=== PATIENT | female | born 1990 | race Caucasian/White ===

== ENCOUNTER 2020-01-21 07:37 | Emergency (ER) | payer OTHER ==
[~2020-01-21] VITALS: Ht 170.2 cm; Wt 93.2 kg
[~2020-01-21 07:37] MED LIST: AMBIEN10 MG PO; ATIVAN1 MG PO; BIRTHCONTROL; CELEXA20 MG PO; LISINOPRIL10 MG PO
[2020-01-21 07:38] VITALS: Ht 170.2 cm; Wt 93.2 kg
[2020-01-21] MEDS ORDERED: ADIPEX-P37.5 M1 PO (07:40)
[2020-01-21] MEDS ORDERED: PAXIL30 MG PO (07:40)
[2020-01-21] MEDS ORDERED: SINEQUAN25 MG PO (07:40)
[2020-01-21] MEDS ORDERED: VALTREX1000 MG PO (07:40)
[2020-01-21 08:24] LABS: HCG URINE NEGATIVE (NEGATIVE)
[2020-01-21] MEDS ORDERED: CYCLOBENZAPRINE10 MG PO (08:51)
[2020-01-21] MEDS ORDERED: TYLENOL #4 W/CO1 TAB PO (08:51)
[2020-01-21 09:13] VITALS: BP 133/100
== END 2020-01-21 09:14 | disposition home or self-care (01) ==
LOC: D.ER 07:37
PROVIDERS: Family Medicine
DX: M54.2 Cervicalgia (principal); V89.2XXA Person injured in unspecified motor-vehicle accident, traffic, initial encounter; Y93.9 Activity, unspecified; Y92.9 Unspecified place or not applicable; R51 Headache; I10 Essential (primary) hypertension

== ENCOUNTER 2020-10-03 14:35 | Inpatient (IN) | payer BC ==
[~2020-10-03] VITALS: Ht 170.2 cm; Wt 109.1 kg
[~2020-10-03 14:35] MED LIST changes: +ADIPEX-P37.5 M1 PO; +CYCLOBENZAPRINE10 MG PO; +PAXIL30 MG PO; +SINEQUAN25 MG PO; +TYLENOL #4 W/CO1 TAB PO; +VALTREX1000 MG PO
[2020-10-03 15:39] LABS: BASOPHILS 0.1 % (0-2); EOSINOPHILS 0.4 % (0-7); HEMATOCRIT 40.1 % (36.0-48.0); HEMOGLOBIN 13.1 g/dL (12-16); IMMATURE GRANULOCYTES 1.2 % (0-5); LYMPHOCYTE ABS# 1.48 10x3/uL (1.18-3.74); LYMPHOCYTES 7.9 % (15-50); MCH 29.9 pg (26.0-34.0); MCHC 32.7 g/dL (31.0-37.0); MCV 91.6 fL (80.0-100.0); MEAN PLATELET VOLUME 8.5 fL (7.4-10.4); NEUTROPHIL ABS# 15.11 10x3/uL (1.56-6.13); NEUTROPHILS 80.4 % (40-80); PLATELET COUNT 361 10x3/uL (130-400); RBC 4.38 10x6/uL (4.00-5.40); RDW 14.9 % (11.5-14.5); WBC 18.8 10x3/uL (4.8-10.8)
[2020-10-03 15:53] LABS: APTT 23.9 SECONDS (22.8-39.4); INR 1.04 (0.85-1.17); PROTIME 12.6 SECONDS (11.6-15.0)
[2020-10-03 15:57] LABS: CALC OSMOLALITY 274 mosm/kg (275-300); CALCIUM 8.1 mg/dL (8.5-10.1); CARBON DIOXIDE 23.6 mmol/L (21.0-32.0); CHLORIDE - SERUM 101 mmol/L (98-107); CREATININE - SERUM 0.9 mg/dL (0.6-1.3); GLUCOSE 106 mg/dL (74-106); POTASSIUM - SERUM 3.9 mmol/L (3.5-5.1); SODIUM 136 mmol/L (136-145); UREA NITROGEN 21 mg/dL (7-18); eGFR NON AFRICAN AMERICAN 77 mL/min (90-120)
[2020-10-03 16:00] LABS: HCG SERUM NEGATIVE (NEGATIVE)
[2020-10-03 16:14] LABS: ALKALINE PHOSPHATASE 80 U/L (30-120); ALT (SGPT) 25 U/L (10-68); BILIRUBIN - TOTAL 0.46 mg/dL (0.2-1.3); CKMB 0.7 U/L (0.0-3.6); CREATINE KINASE 35 UL (21-215); PRO BNP 82 pg/mL (0-125); PROTEIN - SERUM 6.9 g/dL (6.4-8.2); TROPONIN-I < 0.017 ng/mL (0.000-0.060)
[2020-10-03 16:30] VITALS: BP 165/109
[2020-10-03 16:48] LABS: D-DIMER-QUANTITATIVE 1.51 ug/mLFEU (0.20-0.54)
[2020-10-03 17:17] VITALS: BP 142/104
--- NOTE | 2020-10-03 19:30 | NUR ---
ASSUMED CARE OF PATIENT, MD CONSULTING TO SEE IF SHE WILL BE ADMITTED, PATIENT HAS NO COMPLAINTS AT THIS TIME. CALL LIGHT WITHIN REACH.
[2020-10-03 20:00] VITALS: BP 137/95
--- NOTE | 2020-10-03 20:50 | NUR ---
TO BE ADMITTED,
--- NOTE | 2020-10-03 21:30 | NUR ---
ADMIT TO ROOM 2137 FROM ER. ALERT/ORIENTED/AMBULATORY. PT HAS BEEN HOME WITH CANDY SINCE 09/15/20 AND BEGAN TO DEVELOP INCREASING SHORTNESS OF BREATH. ADMISSION ASSESSMENT AND HISTORY COMPLETED. HOME MEDS REVIEWED. CALLED AND SPOKE WITH HUMBERTO PUENTE THAT PATIENT WAS ON UNIT, MEDS REVIEWED AND PT ASKING FOR HER AMBIEN AND ATIVAN TO HELP WITH HER ANXIETY AND SLEEP. ORDERS RECIEVED.
[2020-10-03] MEDS ORDERED: AMBIEN5 MG PO (21:43)
[2020-10-03 21:45] VITALS: BP 152/112
--- NOTE | 2020-10-03 23:55 | NUR ---
ADMINISTERED ATIVAN 2MG ORAL AND AMBIEN 10MG ORAL FOR ANXIETY/PROMOTE SLEEP. PT ON TELEMETRY, SHOWING ST 101-120. HAD RESPIRATORY ASSESS PATIENT FOR BASELINE STATUS ON HER BREATHING IN CASE SHE DEVELOPS PROBLEMS. SPOKE WITH PATIENT ABOUT BEDREST WITH BATH ROOM PRIVILEGES.
[2020-10-04 00:32] VITALS: BP 152/111; Ht 170.2 cm; Wt 109.1 kg
--- NOTE | 2020-10-04 02:02 | NUR ---
IV ABT UP AND INFUSING. PT AWAKE, CALMER, MORE RELAXED. LESS SOB.
[2020-10-04 05:17] VITALS: BP 157/104
--- NOTE | 2020-10-04 06:28 | NUR ---
CONSULT PER DR LALA. SEEING PATIENT NOW. NEW ORDERS ADDED TO PLAN OF CARE.
[2020-10-04 07:43] VITALS: BP 140/99
[2020-10-04 08:12] LABS: BASOPHILS 0.1 % (0-2); EOSINOPHILS 1.8 % (0-7); HEMOGLOBIN 12.7 g/dL (12-16); IMMATURE GRANULOCYTES 1.4 % (0-5); LYMPHOCYTE ABS# 3.59 10x3/uL (1.18-3.74); LYMPHOCYTES 24.6 % (15-50); MCH 29.8 pg (26.0-34.0); MCHC 32.6 g/dL (31.0-37.0); MCV 91.5 fL (80.0-100.0); MEAN PLATELET VOLUME 8.4 fL (7.4-10.4); MONOCYTES 8.4 % (2-11); NEUTROPHILS 63.7 % (40-80); PLATELET COUNT 333 10x3/uL (130-400); RBC 4.26 10x6/uL (4.00-5.40); RDW 15.2 % (11.5-14.5); WBC 14.6 10x3/uL (4.8-10.8)
[2020-10-04 08:43] LABS: ALBUMIN 3.1 g/dL (3.4-5.0); ALKALINE PHOSPHATASE 82 U/L (30-120); ALT (SGPT) 27 U/L (10-68); BILIRUBIN - TOTAL 0.33 mg/dL (0.2-1.3); CALC OSMOLALITY 270 mosm/kg (275-300); CALCIUM 7.6 mg/dL (8.5-10.1); CARBON DIOXIDE 26.9 mmol/L (21.0-32.0); CHLORIDE - SERUM 102 mmol/L (98-107); CREATININE - SERUM 0.7 mg/dL (0.6-1.3); GLUCOSE 81 mg/dL (74-106); MAGNESIUM - SERUM 2.6 mg/dL (1.8-2.4); POTASSIUM - SERUM 3.8 mmol/L (3.5-5.1); PROTEIN - SERUM 6.9 g/dL (6.4-8.2); SODIUM 135 mmol/L (136-145); UREA NITROGEN 19 mg/dL (7-18); eGFR NON AFRICAN AMERICAN > 90 mL/min (90-120)
--- NOTE | 2020-10-04 10:36 | NUR ---
NOTIFIED DR. WAHL THAT PT IS VERY ANXIOUS AND WANTS TO KNOW IF SHE CAN HAVE SOMETHING FOR ANXIETY. ORDER FOR 1MG OF ATIVAN PO Q12PRN.
--- NOTE | 2020-10-04 10:50 | NUR ---
PT VERY ANXIOUS HR IN 120S, GAVE 1MG OF ATIVAN AT THIS TIME. PT DENIES ANY OTHER NEEDS, CALL LIGHT IN REACH.
[2020-10-04 11:05] VITALS: BP 138/83
--- NOTE | 2020-10-04 13:29 | NUR ---
PT C/O CHEST PAIN, ST 126 ON TELEMETRY. PT REFUSED TO HAVE EKG DONE, GAVE 4MG OF MORPHINE GIVEN FOR PAIN LEVEL OF 5/10. PT VERY ANXIOUS, ANXIETY MEDICATION ALREADY GIVEN EARLIER. PT DENIES ANY OTHER NEEDS AT THIS TIME. CALL LIGHT IN REACH.
[2020-10-04 14:58] VITALS: BP 157/101
--- NOTE | 2020-10-04 17:36 | NUR ---
PT C/O RT FA IV HURTING, FLUSHED IV AND PT STATED THAT IT DID NOT BURN BUT IT JUST DID NOT FEEL RIGHT, D/C IV WITH CATHETER TIP INTACT. PT WANTS TO GET IN THE SHOWER, PROVIDED PT WITH SUPPLIES NEEDED FOR SHOWER, PT STATED THAT SHE WOULD CHANGE HER OWN LINEN.
--- NOTE | 2020-10-04 18:20 | NUR ---
NEW 20G IV STARTED TO LT FA X1 STICK, PT TOLERATED PROCEDURE WELL.
[2020-10-04 20:30] VITALS: BP 153/99
[2020-10-05 00:30] VITALS: BP 123/85
--- NOTE | 2020-10-05 02:35 | NUR ---
PT VERY ANXIOUS THIS SHIFT. PATIENT REQUESTED PRN ATIVAN AND FLEXERIL. PRN MEDICATIONS GIVEN. PT HR INCREASED TO 150 WHEN AMBULATING TO BATHROOM. 110 HR AT REST. PT STAYED AWAKE UNTIL 0230 THIS MORNING. PT OBSERVED SNORING AND RESTING COMFORTABLY.
[2020-10-05 04:30] VITALS: BP 155/98
[2020-10-05 05:57] LABS: BASOPHILS 0.2 % (0-2); EOSINOPHILS 1.8 % (0-7); HEMATOCRIT 35.4 % (36.0-48.0); HEMOGLOBIN 11.4 g/dL (12-16); IMMATURE GRANULOCYTES 1.5 % (0-5); LYMPHOCYTE ABS# 3.11 10x3/uL (1.18-3.74); MCH 29.8 pg (26.0-34.0); MCHC 32.2 g/dL (31.0-37.0); MCV 92.4 fL (80.0-100.0); MEAN PLATELET VOLUME 8.5 fL (7.4-10.4); MONOCYTES 9.6 % (2-11); NEUTROPHIL ABS# 7.72 10x3/uL (1.56-6.13); NEUTROPHILS 61.9 % (40-80); PLATELET COUNT 302 10x3/uL (130-400); RBC 3.83 10x6/uL (4.00-5.40); RDW 15.4 % (11.5-14.5); WBC 12.5 10x3/uL (4.8-10.8)
[2020-10-05 06:36] LABS: ALBUMIN 2.6 g/dL (3.4-5.0); ALKALINE PHOSPHATASE 76 U/L (30-120); BILIRUBIN - TOTAL 0.38 mg/dL (0.2-1.3); CALC OSMOLALITY 271 mosm/kg (275-300); CALCIUM 7.8 mg/dL (8.5-10.1); CARBON DIOXIDE 26.3 mmol/L (21.0-32.0); CHLORIDE - SERUM 103 mmol/L (98-107); CREATININE - SERUM 0.7 mg/dL (0.6-1.3); GLUCOSE 81 mg/dL (74-106); MAGNESIUM - SERUM 2.3 mg/dL (1.8-2.4); SODIUM 135 mmol/L (136-145); UREA NITROGEN 20 mg/dL (7-18); eGFR NON AFRICAN AMERICAN > 90 mL/min (90-120)
[2020-10-05 06:38] LABS: ALT (SGPT) 19 U/L (10-68); POTASSIUM - SERUM 4.4 mmol/L (3.5-5.1)
[2020-10-05 08:00] VITALS: BP 156/100
--- NOTE | 2020-10-05 09:36 | NUR ---
AM MEDS GIVEN AT THIS TIME. ALSO GAVE 1MG OF ATIVAN AND FLEXERIL PER PT REQUEST. EKG DONE AND PLACED ON CHART. PT A/O X4, RESP EVEN AND NONLAOBORED ON 2L NC. LT FA IV SL, ST 122 ON TELEMETRY. PT DENIES ANY OTHER NEEDS AT THIS TIME. CALL LIGHT IN REACH, WILL CONTINUE PLAN OF CARE.
[2020-10-05 12:00] VITALS: BP 129/83
--- NOTE | 2020-10-05 15:33 | NUR ---
NOTIFIED JASMYN RODRIGUEZ, THAT PT IS ASKING IF SHE CAN HAVE SOMETHING EXTRA FOR ANXIETY, PER JASMYN D/C 1MG OF ATIVAN Q12HRS PRN AND START XANAX [id number] PRN.
[2020-10-05 16:00] VITALS: BP 136/80
--- NOTE | 2020-10-05 16:33 | NUR ---
AFTER XANAX WAS SCANNED AND GIVEN TO PT, COMPUTER KICKED THIS NURSE OUT OF [facility] AND XANAX WAS NEVER SUBMITTED. TRIED TO SCAN MEDICATIONS AGAIN AND IT KEEPS SAYING THAT IT IS ALREADY BEING DOCUMENTED BY THIS NURSE ON THE COMPUTER. TOTAL XANAX GIVEN WAS 0.5MG PER ORDER.
--- NOTE | 2020-10-05 17:55 | NUR ---
4MG OF MORPHINE GIVEN FOR PAIN LEVEL OF 6/10. PT DENIES ANY OTHER NEEDS AT THIS TIME. CALL LIGHT IN REACH.
--- NOTE | 2020-10-05 19:10 | NUR ---
pt awake, alert sittingup in bed, denies needs at this time. Does want a nail file if possible, advised pt will check on this. will cotninue to monitor
[2020-10-06] VITALS (7 sets, daily range): BP systolic 130–154; BP diastolic 75–104
[2020-10-06 09:03] LABS: BASOPHILS 0.2 % (0-2); EOSINOPHILS 1.8 % (0-7); HEMATOCRIT 38.3 % (36.0-48.0); HEMOGLOBIN 12.1 g/dL (12-16); LYMPHOCYTES 23.3 % (15-50); MCH 29.7 pg (26.0-34.0); MCHC 31.6 g/dL (31.0-37.0); MCV 93.9 fL (80.0-100.0); MEAN PLATELET VOLUME 8.5 fL (7.4-10.4); MONOCYTES 8.2 % (2-11); NEUTROPHIL ABS# 8.56 10x3/uL (1.56-6.13); NEUTROPHILS 64.5 % (40-80); PLATELET COUNT 322 10x3/uL (130-400); RBC 4.08 10x6/uL (4.00-5.40); RDW 15.4 % (11.5-14.5); WBC 13.3 10x3/uL (4.8-10.8)
[2020-10-06 09:18] LABS: ALBUMIN 2.9 g/dL (3.4-5.0); ALKALINE PHOSPHATASE 93 U/L (30-120); ALT (SGPT) 22 U/L (10-68); BILIRUBIN - TOTAL 0.42 mg/dL (0.2-1.3); CALC OSMOLALITY 272 mosm/kg (275-300); CALCIUM 7.8 mg/dL (8.5-10.1); CARBON DIOXIDE 29.6 mmol/L (21.0-32.0); CHLORIDE - SERUM 102 mmol/L (98-107); CREATININE - SERUM 0.6 mg/dL (0.6-1.3); GLUCOSE 78 mg/dL (74-106); MAGNESIUM - SERUM 2.2 mg/dL (1.8-2.4); POTASSIUM - SERUM 3.8 mmol/L (3.5-5.1); PROTEIN - SERUM 6.4 g/dL (6.4-8.2); SODIUM 136 mmol/L (136-145); UREA NITROGEN 19 mg/dL (7-18); eGFR NON AFRICAN AMERICAN > 90 mL/min (90-120)
--- NOTE | 2020-10-06 12:20 | NUR ---
GAVE 4MG OF MORPHINE FOR PAIN LEVEL OF 5/10. PT DENIES ANY OTHER NEEDS AT THIS TIME. CALL LIGHT IN REACH.
--- NOTE | 2020-10-06 12:20 | NUR ---
4MG OF MORPHINE GIVEN AT THIS TIME. FOR PAIN LEVEL OF 5/10. PT DENIES ANY OTHER NEEDS AT THIS TIME. CALL LIGHT IN REACH.
--- NOTE | 2020-10-06 23:30 | NUR ---
PT HAS HAD SCHEDULED MEDS AND PRNS, REPORTS STILL WORRIED THAT SHE CAN NOT SLEEP. BP NOTED ELEVATED BUT IMPROVED UPON RECHECK.
[2020-10-07 07:14] LABS: BASOPHILS 0.1 % (0-2); EOSINOPHILS 1.5 % (0-7); HEMATOCRIT 39.7 % (36.0-48.0); HEMOGLOBIN 12.5 g/dL (12-16); IMMATURE GRANULOCYTES 3.1 % (0-5); LYMPHOCYTE ABS# 3.15 10x3/uL (1.18-3.74); LYMPHOCYTES 23.5 % (15-50); MCH 29.8 pg (26.0-34.0); MCHC 31.5 g/dL (31.0-37.0); MCV 94.5 fL (80.0-100.0); MEAN PLATELET VOLUME 8.7 fL (7.4-10.4); NEUTROPHIL ABS# 8.57 10x3/uL (1.56-6.13); NEUTROPHILS 63.8 % (40-80); PLATELET COUNT 383 10x3/uL (130-400); RDW 15.5 % (11.5-14.5); WBC 13.4 10x3/uL (4.8-10.8)
[2020-10-07 07:18] LABS: ALKALINE PHOSPHATASE 89 U/L (30-120); ALT (SGPT) 24 U/L (10-68); BILIRUBIN - TOTAL 0.34 mg/dL (0.2-1.3); CALC OSMOLALITY 273 mosm/kg (275-300); CALCIUM 8.2 mg/dL (8.5-10.1); CARBON DIOXIDE 29.7 mmol/L (21.0-32.0); CHLORIDE - SERUM 101 mmol/L (98-107); CREATININE - SERUM 0.7 mg/dL (0.6-1.3); GLUCOSE 82 mg/dL (74-106); MAGNESIUM - SERUM 2.3 mg/dL (1.8-2.4); POTASSIUM - SERUM 3.8 mmol/L (3.5-5.1); PROTEIN - SERUM 6.8 g/dL (6.4-8.2); SODIUM 136 mmol/L (136-145); UREA NITROGEN 20 mg/dL (7-18); eGFR NON AFRICAN AMERICAN > 90 mL/min (90-120)
[2020-10-07 08:10] VITALS: BP 103/67
[2020-10-07 11:13] VITALS: BP 113/68
[2020-10-07 17:00] VITALS: BP 127/61
[2020-10-07 20:00] VITALS: BP 129/84
--- NOTE | 2020-10-07 23:33 | NUR ---
HR 118 pt request metoprolol for HR and to see if this will help her to calm down and sleep. MEtorpolol adm per PRN parameters.
[2020-10-08 04:00] VITALS: BP 128/81
[2020-10-08 05:30] LABS: BASOPHILS 0.1 % (0-2); EOSINOPHILS 1.3 % (0-7); HEMATOCRIT 40.8 % (36.0-48.0); HEMOGLOBIN 12.9 g/dL (12-16); IMMATURE GRANULOCYTES 3.6 % (0-5); LYMPHOCYTE ABS# 3.84 10x3/uL (1.18-3.74); LYMPHOCYTES 24.9 % (15-50); MCH 30.4 pg (26.0-34.0); MCHC 31.6 g/dL (31.0-37.0); MCV 96.2 fL (80.0-100.0); MEAN PLATELET VOLUME 8.4 fL (7.4-10.4); NEUTROPHIL ABS# 9.73 10x3/uL (1.56-6.13); NEUTROPHILS 63.1 % (40-80); PLATELET COUNT 346 10x3/uL (130-400); RBC 4.24 10x6/uL (4.00-5.40); RDW 15.7 % (11.5-14.5); WBC 15.4 10x3/uL (4.8-10.8)
[2020-10-08 05:50] LABS: ALBUMIN 3.2 g/dL (3.4-5.0); ALKALINE PHOSPHATASE 143 U/L (30-120); ALT (SGPT) 29 U/L (10-68); BILIRUBIN - TOTAL 0.31 mg/dL (0.2-1.3); CALCIUM 7.9 mg/dL (8.5-10.1); CARBON DIOXIDE 27.1 mmol/L (21.0-32.0); CHLORIDE - SERUM 101 mmol/L (98-107); MAGNESIUM - SERUM 2.2 mg/dL (1.8-2.4); POTASSIUM - SERUM 3.3 mmol/L (3.5-5.1); PROTEIN - SERUM 6.9 g/dL (6.4-8.2); SODIUM 136 mmol/L (136-145); UREA NITROGEN 20 mg/dL (7-18); eGFR NON AFRICAN AMERICAN 77 mL/min (90-120)
[2020-10-08 06:00] LABS: CALC OSMOLALITY 276 mosm/kg (275-300); CREATININE - SERUM 0.9 mg/dL (0.6-1.3); GLUCOSE 143 mg/dL (74-106)
[2020-10-08 08:19] VITALS: BP 139/84
[2020-10-08] MEDS ORDERED: NYSTATIN100000 UN4 PO (08:53)
[2020-10-08] MEDS ORDERED: VENTOLIN HFA [SP8 GM INH (08:54)
[2020-10-08] MEDS ORDERED: XOPENEX HFA15 GM INH (08:54)
[2020-10-08] MEDS ORDERED: ELIQUIS5 MG PO (08:55)
[2020-10-08] MEDS ORDERED: ZINC-220220 MG PO (08:56)
[2020-10-08] MEDS ORDERED: TESSALON PERLE100 MG PO (08:56)
[2020-10-08] MEDS ORDERED: MUCINEX600 MG PO (08:56)
[2020-10-08] MEDS ORDERED: DULERA 200 MCG8.8 GM INH (08:56)
[2020-10-08] MEDS ORDERED: PROTONIX40 MG PO (08:57)
[2020-10-08] MEDS ORDERED: FLORAJEN3 CAPS460 MG PO (08:57)
[2020-10-08] MEDS ORDERED: ASCORBIC ACID500 MG PO (08:57)
[2020-10-08] MEDS ORDERED: MELATONIN 3 MG1 TAB PO (08:57)
[2020-10-08] MEDS ORDERED: VITAMIN D325 MC1 PO (08:57)
[2020-10-08] MEDS ORDERED: DECADRON4 MG PO (08:58)
[2020-10-08] MEDS ORDERED: OMNICEF300 MG PO (08:59)
[2020-10-08] MEDS ORDERED: AZITHROMYCIN500 MG PO (08:59)
[2020-10-08] MEDS ORDERED: XANAX1 MG PO (09:00)
--- NOTE | 2020-10-08 10:06 | NUR ---
WRITTEN SCRIPT FOR XANAX IS COPIED AND ORIGINAL IS GIVEN TO PATIENT.
--- NOTE | 2020-10-08 22:42 | MORECARE ---
CASE MANAGEMENT DISCHARGE SUMMARY PATIENT: GENOVEVA CHUN UNIT: [id number] ADM DATE: 10/03/20 AGE: 30 : 86 SEX: F ROOM/BED: D.5927 AUTHOR: MANI PAEZ PHYSICIAN: REFERRING PHYSICIAN: ELISEO GARZA MD DATE OF SERVICE: 10/08/20 Discharge Plan Patient Name: GENOVEVA CHUN Facility: [facility]:[place] : 1990 Planned Disposition: Home Anticipated Discharge Date: Discharge Date: 10/08/2020 Expected LOS: Initial Reviewer: [email or web address] Initial Review Date: 10/03/2020 Generated: 10/08/20 11:41 pm Comments DCP- Discharge Planning Updated by [email or web address]: Cierra Dong on 10/08/20 9:[address] Patient Name: GENOVEVA CHUN Admission Status: ER Accout number: [id number] Admission Date: 10-03-2020 : 1990 Admission Diagnosis:ACUTE RESPIRATORY FAILURE WITH HYPOXIA Attending: ELISEO GARZA Current LOS: 5 Anticipated DC Date: Planned Disposition: Home Primary Insurance: [employer] Discharge Planning Comments: CM called and spoke with patient to complete initial dc planning assessment. CM educated patient on the CM role and verbal consent given by patient to complete assessment. Patient lives at home with family. Patient is independent. At discharge patient plans to return home and feels this is a safe discharge. CM discussed availability of home health, rehab services, and medical equipment. [facility] for [facility] Patient will have family to transport home. Patient concerned about Eliquis cost upon discharge CM provided patient with $10.00 co-pay card. Patient denied known discharge needs at this time. CM will continue to follow and will assist as needed with dc plans/needs. CM spoke with Jasson and faxed records for home and portable 02. Portable tank to be delivered to patient room. Juice Mixer: Cierra Dong DCPIA - Discharge Planning Initial Assessment Updated by [email or web address]: Cierra Dong on 10/08/20 10:37 pm * Is the patient Alert and Oriented? Yes * How many steps to enter\exit or inside your home? * PCP [facility]EN * Pharmacy [facility] * Preadmission Environment Home with Family * ADLs Independent * Equipment None * List name and contact numbers for known caregivers / representatives who currently or will assist patient after discharge: DWAINE CHUN - [facility]- [phone] * Verbal permission to speak to the caregivers and representatives has been obtained from the patient. Yes * Community resources currently utilized None * Additional services required to return to the preadmission environment? No * Can the patient safely return to the preadmission environment? Yes * Has this patient been hospitalized within the prior 30 days at any hospital? No External Providers [facility] [place] Contact Date: Service Request Date: Service Type: Resolution: Reviewer: Comments: Patient Name: GENOVEVA CHUN Page [phone] at 2242 All edits/amendments must be made on the electronic document DICTATION DATE: 10/08/202241 RESIDENTIAL HOUSEKEEPER: MAXIMO 10/08/202241 RPT#: [id number] DC DATE:10/08/20 STATUS: DIS IN [facility] [address] [place] [address] END OF REPORT
== END 2020-10-08 10:55 | disposition home or self-care (01) | DRG 177 ==
LOC: D.ER 14:35 → D.EDHOLD 19:31 → D.M2 19:31
PROVIDERS: Family Medicine; ADMIT Emergency Medicine; ATTEND Emergency Medicine
PROC: XW033E5 Introduction of Remdesivir Anti-infective into Peripheral Vein, Percutaneous Approach, New Technology Group 5 (ICD-10-PCS; principal; 2020-10-04)
DX: U07.1 COVID-19 (principal); I26.99 Other pulmonary embolism without acute cor pulmonale; R00.0 Tachycardia, unspecified; I10 Essential (primary) hypertension; F41.8 Other specified anxiety disorders; E66.9 Obesity, unspecified; Z68.37 Body mass index [BMI] 37.0-37.9, adult; Z86.16 Personal history of COVID-19

== ENCOUNTER → 2020-10-22 16:21 | Outpatient (CLI) | payer BC ==
[2020-10-04 00:32] VITALS: BMI 37.7
[~2020-10-22 16:21] MED LIST changes: +AMBIEN5 MG PO; +ASCORBIC ACID500 MG PO; +AZITHROMYCIN500 MG PO; +DECADRON4 MG PO; +DULERA 200 MCG8.8 GM INH; +ELIQUIS5 MG PO; +FLORAJEN3 CAPS460 MG PO; +MELATONIN 3 MG1 TAB PO; +MUCINEX600 MG PO; +NYSTATIN100000 UN4 PO; +OMNICEF300 MG PO; +PROTONIX40 MG PO; +TESSALON PERLE100 MG PO; +VENTOLIN HFA [SP8 GM INH; +VITAMIN D325 MC1 PO; +XANAX1 MG PO; +XOPENEX HFA15 GM INH; +ZINC-220220 MG PO
== END | disposition home or self-care (01) ==
LOC: D.CT 16:00
PROVIDERS: ATTEND Family Medicine
DX: S09.90XA Unspecified injury of head, initial encounter (principal)

== ENCOUNTER → 2020-12-03 13:38 | Outpatient (CLI) | payer BC ==
[2020-10-04 00:32] VITALS: BMI 37.7
--- NOTE | 2020-12-03 15:13 | NUR ---
PT HAD JUST FINISHED PRE FVL, WAS DOING VITALS FOR UPDRAFT AND PTS HEART RATE WAS 155, 132,100, JUMPING ALL AROUND, SPO[facility] MANN [facility] AND DISCUSSED THIS, WAS TOLD TO CANCEL PFT FOR NOW AND SHE WAS TO GET WITH HER PRIMARY AND CHECK ON HER HEART RATE.
== END | disposition home or self-care (01) ==
LOC: D.RAD 11-21 15:00 → D.RT 13:38
PROVIDERS: ATTEND Internal Medicine Pulmonary Disease
DX: R06.09 Other forms of dyspnea (principal); Z11.52 Encounter for screening for COVID-19

== ENCOUNTER → 2021-01-30 10:42 | Outpatient (CLI) | payer BC ==
[2020-10-04 00:32] VITALS: BMI 37.7
== END | disposition home or self-care (01) ==
LOC: D.LAB 09:26
PROVIDERS: ATTEND Internal Medicine Pulmonary Disease
DX: Z11.52 Encounter for screening for COVID-19 (principal)

== ENCOUNTER → 2021-02-04 10:28 | Outpatient (CLI) | payer BC ==
[2020-10-04 00:32] VITALS: BMI 37.7
== END | disposition home or self-care (01) ==
LOC: D.RT 10:28
PROVIDERS: ATTEND Internal Medicine Pulmonary Disease
DX: R06.09 Other forms of dyspnea (principal); Z11.52 Encounter for screening for COVID-19